=== PATIENT | male | born 1975 | race Caucasian/White ===

== ENCOUNTER → 2021-06-13 09:25 | Outpatient (CLI) | payer OTHER, SELFPAY ==
--- NOTE | ~2021-06-13 | MR_ITS ---
EXAMINATION: MR hip LT wo con DATE: 06/13/2021 10:32 INDICATION: Chronic progressive left hip pain. TECHNIQUE: Magnetic resonance imaging (MRI) of the left hip was performed without intravenous contras t. Sequences included axial and coronal PD-weighted FS FSE and axial T1-weighted FSE of the pelvis. S equences of the hip included 2D FIESTA, T1-weighted fast GRE, and axial, coronal, and sagittal PD-radha ghted FS FSE. COMPARISON: None FINDINGS: Bones/cartilage: Bone alignment is normal. No fracture. Bone marrow signal intensity is normal. The femoral head/neck morphologies are normal. Left hip joint cartilage is normal. Labrum: There is a tear of the left acetabular labrum with 4 x 8 mm paralabral cyst. Fluid: There is no hip joint effusion. There is mild bilateral trochanteric bursitis. Soft tissues: The hamstring origins and iliopsoas tendons are normal. The gluteus minimus tendons and right gluteus medius tendons are normal. There is mild left gluteus medias tendinopathy. IMPRESSION: 1. Left acetabular labral tear with paralabral cyst. Reviewed, dictated and finalized at location A. ER OPERATOR
== END ==
DX: S73.192A Other sprain of left hip, initial encounter (principal); X58.XXXA Exposure to other specified factors, initial encounter
CPT/HCPCS: 73721